=== PATIENT | female | born 1985 | race Caucasian/White ===

== ENCOUNTER 2021-07-31 19:03 | Emergency (ER) | payer BC, MEDICAID, SELFPAY ==
[2021-07-31 19:32] VITALS: BP 177/121; PULSE 66; RESP 18; TEMP 36.8; O2SAT 100; BMI 22.1
--- NOTE | 2021-07-31 21:34 | CTR_ITS ---
PROCEDURE INFORMATION: Exam: CT Head Without Contrast Exam date and time: 07/31/2021 9:51 PM Age: 35 years old Clinical indication: Pain; Headache not specified; Patient HX: C/O CORONEL and HTN TECHNIQUE: Imaging protocol: Computed tomography of the head without contrast. Radiation optimization: All CT scans at this facility use at least one of these dose optimization techniques: automated exposure control; mA and/or kV adjustment per patient size (includes targeted exams where dose is matched to clinical indication); or iterative reconstruction. COMPARISON: No relevant prior studies available. RADIATION DOSE METRICS: Total DLP (mGy-cm): 870.54 FINDINGS: Brain: No acute intracranial hemorrhage or mass effect. No definite acute infarct by CT. Cerebral ventricles: Ventricle size is normal for age. Paranasal sinuses: Included paranasal sinuses are essentially clear. Mastoid air cells: No significant acute finding. Bones/joints: No definite acute skull fracture. Soft tissues: No significant acute finding. CT/CT head wo con* [id number] IMPRESSION: 1. No acute intracranial hemorrhage or mass effect. 2. Other findings discussed above.
--- NOTE | 2021-07-31 22:15 | W.ED.HA ---
HPI - Headache General: Chief Complaint: Headache Stated Complaint: High BP Time Seen by Provider: 07/31/21 22:06 Source: patient Mode of arrival: ambulatory Limitations: no limitations History of Present Illness: 35-year-old female who is currently at [facility] [place] for alcohol and marijuana rehab states her last drink was over a month ago was not having withdrawal symptoms. States she does have a history hypertension supposed to be on atenolol lisinopril has only been taken propanolol there. States that her blood pressure has been high today and the doctor is out for the weekend and she needed prescriptions refilled of her old blood pressure medicine. She states she had a headache earlier today but her headache is since resolved. Denies any worsening improving factors. Associated symptoms: Deny chest pain, fever(s), nausea, rash or vomiting Review of Systems Const: Denies: fever(s), chills, body aches or change in appetite Eyes: Denies: blurry vision or eye discomfort ENMT: Denies: throat pain or dental pain Card: Denies: chest pain Resp: Denies: dyspnea GI: Denies: abdominal pain, nausea, vomiting or diarrhea : Denies: dysuria Musc: Denies: neck pain or back pain Skin/Breast: Denies: rash Neuro: Reports: headache(s) Psych: Denies: depression Beni/Lymph: Denies: easy bruising All/Imm: Denies: urticaria PFSH ED PFSH: Medical History (Updated 07/31/21 @ 22:18 by Lucy Stapleton MD) Hypertension Social History (Updated 07/31/21 @ 22:16 by Lucy Stapleton MD) Alcohol intake: former Physical Exam Const: COMMON NORMALS: no acute distress, patient oriented x3 and healthy appearing HENMT: COMMON NORMALS: normocephalic and atraumatic HEAD & SCALP: normocephalic and atraumatic Eye: COMMON NORMALS: Equal, round and reactive pupils present and EOMs intact bilaterally PUPIL: Yes Equal, round and reactive pupils present Neck/C-Spine: COMMON NORMALS: full ROM and supple Chest: COMMONS NORMALS: normal inspection of the chest and normal palpation of entire chest wall Resp: COMMON NORMALS: normal respiratory effort, No retractions, No use of accessory muscles and clear to auscultation bilaterally AUSCULTATION: clear to auscultation bilaterally Cardio: COMMON NORMALS: regular rate, regular rhythm and No murmurs present (Cardio) RATE: regular rate RHYTHM: regular rhythm GI: COMMON NORMALS: Normal to inspection, nondistended, normoactive bowel sounds present, Soft to palpation, non-tender and no masses PALPATION: Yes Soft to palpation Extremity: COMMON NORMALS: normal to inspection and full ROM Neuro: COMMON NORMALS: patient oriented x3, moves all extremities and no focal motor deficits Psych: COMMON NORMALS: mental status grossly normal, Normal thought process present and cooperative THOUGHT PROCESS: Normal thought process present Skin: COMMON NORMALS: no rashes or lesions noted and no wounds GENERAL SKIN EXAM: no rashes or lesions noted Course Vital Signs: Vital signs: Vital Signs Temperature 98.3 F 07/31/21 19:32 Pulse Rate 66 07/31/21 19:32 Respiratory Rate 18 07/31/21 19:32 Blood Pressure 177/121 07/31/21 19:32 Pulse Oximetry 100 07/31/21 19:32 MDM - Headache Medical Decision Making Patient presents here from [facility] rehab for hypertension she supposed be on atenolol and lisinopril at home that started on her propanolol there and their doctor is out socially were not able to give her any other meds. She did have a headache her late since resolved no symptoms of head bleed. She has no withdrawal symptoms here either. We will refill her atenolol and lisinopril will have them stop the propanolol. Her blood pressure here is improved she is stable for discharge at this time. Lab Data Radiology Impressions Head CT 07/31/21 21:34 IMPRESSION: 1. No acute intracranial hemorrhage or mass effect. 2. Other findings discussed above. Discharge Plan Discharge Patient Disposition: Home Clinical Impression: Hypertension Qualifiers: Hypertension type: primary hypertension Qualified Code(s): I10 - Essential (primary) hypertension Headache Qualifiers: Headache type: unspecified Headache chronicity pattern: acute headache Intractability: not intractable Qualified Code(s): R51.9 - Headache, unspecified Prescriptions: New lisinopril 10 mg tablet 10 mg PO DAILY Qty: 30 0RF atenolol 25 mg tablet 25 mg PO BID Qty: 60 0RF No Action doxycycline monohydrate 100 mg capsule 100 mg PO BID 10 Days Qty: 20 0RF prednisone 20 mg tablet 40 mg PO .Daily in A.M. 5 Days Qty: 10 0RF Discharge Orders: Discharge ED (Routine); Ordered 07/31/21 Ordered By: Lucy Stapleton Referrals: SHANNA Wright, ORDER BUILDER LOADER [Primary Care Provider] - Discharge Diet: Advance as tolerated Discharge Activity: Resume usual activity Patient Instructions: Hypertension (ED) Activity Restrictions/Additional Instructions: Stop propanolol and start atenolol and lisinopril as prescribed Coding Level of Care Code ED Corporate Development Officer for Mattg Fwd Exam Comprehensive
[2021-07-31] MEDS: atenolol 50 mg Tablet 25 MG PO (22:24)
[2021-07-31 22:26] VITALS: BP 148/93; PULSE 62; RESP 18; O2SAT 97
[2021-07-31] MEDS: lisinopril 10 mg Tablet PO (22:26)
== END 2021-07-31 22:33 | disposition home or self-care (01) ==
PROVIDERS: Emergency Provider Emergency Medicine; PCP Nurse Practitioner Family
DX: R51.9 Headache, unspecified (principal); I10 Essential (primary) hypertension
CPT/HCPCS: 70450; 99281

== ENCOUNTER 2024-09-19 12:13 | Emergency (ER) | payer BC, MEDICAID, SELFPAY ==
[2024-09-19 12:19] VITALS: BP 151/94; PULSE 85; RESP 16; TEMP 36.8; O2SAT 100; BMI 23.9
[2024-09-19 13:20] VITALS: BP 157/105; PULSE 68; O2SAT 98
--- NOTE | 2024-09-19 13:30 | CT_ITS ---
WS: [id number] CT ABDOMEN PELVIS TECHNIQUE: Contrast-enhanced CT of the abdomen and pelvis with coronal and sagittal reformatted images. CLINICAL INFORMATION: epigastric abdominal pain severe with nausea COMPARISON: None. DLP: 512.[address] scans at [facility] use at least one of these dose optimization techniques: automated exposure control; mA and/or kV adjustment per patient size (includes targeted exams where dose is matched to clinical indication); or iterative reconstruction. FINDINGS: Mild gastric wall thickening and enhancement. Submucosal enhancement along the duodenum. Findings compatible with gastroduodenitis. Small amount of induration and enhancement involving the collapsed transverse colon and LEFT descending colon can be seen with mild infectious or inflammatory colitis recommend correlation with clinical symptoms. Normal GE junction. Lung bases are well aerated. Hepatomegaly. Fatty liver. Normal portal vein and splenic vein. Normal spleen. Adrenal glands are normal. Normal pancreatic parenchymal enhancement. Normal gallbladder. Normal caliber abdominal aorta. Celiac and SMA are patent. Bilateral renal cysts. No hydronephrosis. Normal appendix in the RIGHT lower quadrant. Urine distended bladder. Anteverted uterus. CT/CT abdomen pelvis w con* [id number] IMPRESSION: 1. Findings compatible with gastritis and duodenitis. 2. Fatty liver. 3. Small amount of induration with submucosal enhancement involving the LEFT d escending colon and transverse colon can be seen with mild infectious or inflam matory colitis. 4. Normal appendix. 5. Small fat-containing umbilical hernia
--- NOTE | 2024-09-19 13:33 | ED_ITS ---
HPI - Abdominal Pain 2 General: Chief Complaint: Abdominal Pain Stated Complaint: abdominal pain Time Seen by Provider: 09/19/24 12:28 History of Present Illness: 39-year-old female presents to the ER [facility] complaint of epigastric abdominal pain progressively worse over the last week or so recent seen at [facility] as well as other locations diagnosed with gastritis patient reports she is currently on Pepcid or Protonix with no improvement of her symptoms patient does report history of alcohol use but none recent reports no increased caffeine nicotine or alcohol usage denying a prior history of gastritis or stomach ulcers patient denies any bloody emesis or bloody stools patient reports no other associated symptoms. She does endorse however moderate nausea with the concerns of wanting to eat due to pain and/or associated symptoms. Associated Symptoms: Reports heartburn and nausea; Denies bloating, chills, constipation, diarrhea, fever(s), hematemesis and vomiting Related Data Date of Last Menstrual Period: 08/28/24 Home Medications ?Medication ?Instructions ?Recorded ?Confirmed omeprazole 40 mg capsule,delayed 40 mg PO DAILY 09/19/24 release Previous Rx's ?Medication ?Instructions ?Recorded ondansetron 4 mg disintegrating 4 mg PO Q8H PRN nausea and 09/19/24 tablet vomiting 4 days #20 tabs sucralfate 1 gram tablet (Carafate) 1 g PO Q6H Abdomin al pain, 09/19/24 gastritis #60 tabs Allergies Allergy/AdvReac Type Severity Reaction Status Date / Time No Known Allergies Allergy Verified 09/19/24 12:21 Review of Systems 2 General: Reports: 10 or more systems reviewed and unremarkable except in HPI and below Const: Denies: fever(s), chills, fatigue or malaise Eyes: Denies: change in vision or blurry vision Card: Denies: chest pain or palpitations Resp: Denies: dyspnea or productive cough GI: Reports: abdominal pain, nausea and heartburn; Denies: vomiting, hematemesis, dysphagia, early satiety, diarrhea, constipation or bloating : Denies: flank pain Musc: Denies: extremity pain or extremity swelling Skin/Breast: Denies: rash or pruritus Neuro: Denies: headache(s) Psych: Denies: anxiety or depression Beni/Lymph: Denies: easy bleeding All/Imm: Denies: urticaria, throat swelling or facial swelling PFSH ED 2 PFSH: Medical History Hypertension Social History Alcohol intake: former Female Reproductive History: Date of last menstrual period: 08/28/24 Physical Exam 2 Const: COMMON NORMALS: patient oriented x3 and healthy appearing; apparent distress (Mild distress due to pain appreciated) HENMT: COMMON NORMALS: normocephalic and atraumatic HEAD & SCALP: n ormocephalic and atraumatic Eye: COMMON NORMALS: Equal, round and reactive pupils present and EOMs intact bilaterally PUPIL: Yes Equal, round and reactive pupils present Neck/C-Spine: COMMON NORMALS: full ROM, supple and no JVD Lymph: LYMPHATIC: no lymphadenopathy noted Chest: COMMONS NORMALS: normal inspection of the chest and normal palpation of entire chest wall Resp: COMMON NORMALS: normal respiratory effort, No retractions and clear to auscultation bilaterally EFFORT & INSPECTION: Yes able to speak in complete sentences and Yes symmetric chest movement AUSCULTATION: clear to auscultation bilaterally Cardio: COMMON NORMALS: no JVD, regular rate and regular rhythm RATE: r egular rate RHYTHM: regular rhythm GI: COMMON NORMALS: negative for Normal to inspection, nondistended, normoactive bowel sounds present, negative for Soft to palpation and negative for non-tender (Moderate tenderness appreciated epigastric region otherwise soft nontender ) INSPECTION: Yes normal to inspection PALPATION: No Soft to palpation : COMMON NORMALS: Yes no CVA tenderness BLADDER/KIDNEY EXAM: Yes no CVA tenderness Back/Pelvis: COMMON NORMALS: no CVA tenderness Extremity: COMMON NORMALS: normal to inspection and full ROM Neuro: COMMON NORMALS: patient oriented x3, CN's II-XII intact bilaterally, moves all extremities and no focal motor deficits Psych: COMMON NORMALS: mental status grossly normal, Normal thought process present, cooperative and normal affect THOUGHT PROCESS: Normal thought process present Skin: COMMON NORMALS: no rashes or lesions noted GENERAL SKIN EXAM: no rashes or lesions noted Course 2 Vital Signs: Vital signs: Vital Signs Temperature 98.3 F 09/19/24 12:19 Pulse Rate 70 09/19/24 14:32 Respiratory Rate 16 09/19/24 12:19 Blood Pressure 157/110 09/19/24 15:20 Pulse Oximetry 98 09/19/24 15:20 Oxygen Delivery Me thod Room Air 09/19/24 12:19 MDM - Abdominal Pain Medical Decision Making Due to patient's symptoms and condition IV was established IV fluids provided for hydration GI cocktail as well as Protonix and Zofran will be provided Underlying concerns of possible pancreatitis versus gastric ulcer versus gastritis apparent will continue to follow CAT scan imaging reveals gastritis and duodenitis patient's lab work is unremarkable she was positive for marijuana patiently to further follow-up with primary care for further evaluation for upper endoscopy to further rule out gastric ulcer patient will be started on Carafate as well as additional medications for symptoms advised further follow-up as previously indicis indicated in which to return the interim if any of her symptoms persist or worse Lab Data 09/19/24 12:55 09/19/24 12:55 Labs/Radiology: Radiology Impressions Abdomen/Pelvis CT 09/19/24 13:30 IMPRESSION: 1. Findings compatible with gastritis and duodenitis. 2. Fatty liver. 3. Small amount of induration with submucosal enhancement involving the LEFT descending colon and transverse colon can be seen with mild infectious or inflammatory colitis. 4. Normal appendix. 5. Small fat-containing umbilical hernia Laboratory Results WBC 7.31 10^3/uL (3.29-11.43) 09/19/24 12:55 RBC 4.77 10^6/uL (3.85-5.65) 09/19/24 12:55 Hgb 14.60 g/dL (11.27-16.99) 09/19/24 12:55 Hct 44.1 % (36-47) 09/19/24 12:55 MCV 92.5 fl (85-98) 09/19/24 12:55 MCH 30.6 pg (27-33) 09/19/24 12:55 MCHC 33.1 g/dL (30-55) 09/19/24 12:55 RDW 13.6 % (12.1-15.1) 09/19/24 12:55 Plt Count 234 10^3/cmm (157-399) 09/19/24 12:55 MPV 10.9 fL (7.4-10.4) H 09/19/24 12:55 Neut % (Auto) 64.9 % 09/19/24 12:55 Lymph % (Auto) 29.0 % 09/19/24 12:55 [place] % (Auto) 5.1 % 09/19/24 12:55 Eos % (Auto) 0.4 % 09/19/24 12:55 Baso % (Auto) 0.3 % 09/19/24 12:55 Neut # (Auto) 4.75 10^3/uL (1.8-7.7) 09/19/24 12:55 Lymph # (Auto) 2.1 10^3/uL (0.8-4.8) 09/19/24 12:55 [place] # (Auto) 0.4 10^3/uL (0.2-0.9) 09/19/24 12:55 Eos # (Auto) 0.0 10^3/uL (0.0-0.8) 09/19/24 12:55 Baso # (Auto) 0.0 10^3/uL (0.0-0.1) 09/19/24 12:55 Nucleated RBC % (auto) 0 % 09/19/24 12:55 Nucleated RBCs # 0.0 /100WBC 09/19/24 12:55 Sodium 139 mmol/L (136-145) 09/19/24 12:55 Potassium 4.5 mmol/L (3.5-5.1) 09/19/24 12:55 Chloride 103 mmol/L (98-107) 09/19/24 12:55 Carbon Dioxide 25 mmol/L (22-29) 09/19/24 12:55 Anion Gap 15.5 (5-19) 09/19/24 12:55 BUN 11 mg/dL (6-20) 09/19/24 12:55 Creatinine 0.7 mg/dL (0.5-0.9) 09/19/24 12:55 GFR Calculation 94.2 mL/min (90-130) 09/19/24 12:55 Glucose 100 mg/dL (65-115) 09/19/24 12:55 Calculated Osmolality 287 mOsm/kg (285-295) 09/19/24 12:55 Calcium 9.5 mg/dL (8.5-10.5) 09/19/24 12:55 Total Bilirubin 0.3 mg/dL (0.15-1.2) 09/19/24 12:55 AST 14 U/L (0-32) 09/19/24 12:55 ALT 11 U/L (0-33) 09/19/24 12:55 Alkaline Phosphatase 88 U/L (35-105) 09/19/24 12:55 C-Reactive Protein 3.0 mg/L (0.0-4.9) 09/19/24 12:55 Total Protein 7.6 g/dL (6.6-8.7) 09/19/24 12:55 Albumin 4.6 g/dL (3.5-5.2) 09/19/24 12:55 Globulin 3.0 g/dL (1.3-4.6) 09/19/24 12:55 Lipase 21 U/L (13-60) 09/19/24 12:55 HCG, Qual Negative (Negative) 09/19/24 12:28 Urine Color Yellow (Yellow) 09/19/24 12:28 Urine Appearance Clear (CLEAR) 09/19/24 12:28 Urine pH 6.0 (5-7) 09/19/24 12:28 Ur Specific [place] 1.019 (1.005-1.030) 09/19/24 12:28 Urine Protein Negative (Negative) 09/19/24 12:28 Urine Glucose (UA) Negative (Normal) 09/19/24 12:28 Urine Ketones Negative (Negative) 09/19/24 12:28 Urine Blood Negative (Negative) 09/19/24 12:28 Urine Nitrate Negative (Negative) 09/19/24 12:28 Urine Bilirubin Negative (Negative) 09/19/24 12:28 Urine Urobilinogen 1.0 mg/dL (Negative) 09/19/24 12:28 Ur Leukocyte Esterase Negative (Negative) 09/19/24 12:28 Urine RBC 0-2 /hpf (0-2) 09/19/24 12:28 Urine WBC 0-5 /hpf (0-5) 09/19/24 12:28 Ur Squamous Epith Cells 0-5 /hpf (0-5) 09/19/24 12:28 Amorphous Sediment Not Reportable 09/19/24 12:28 Urine Bacteria None seen /hpf (NONE) 09/19/24 12:28 Hyaline Casts 0.40 /lpf 09/19/24 12:28 Urine Opiates Screen Negative ng/mL (Negative) 09/19/24 12:28 Ur Barbiturates Screen Negative ng/mL (Negative) 09/19/24 12:28 Ur Phencyclidine Scrn Negative ng/mL (Negative) 09/19/24 12:28 Ur Amphetamines Screen Negative ng/mL (Negative) 09/19/24 12:28 U Benzodiazepines Scrn Negative ng/mL (Negative) 09/19/24 12:28 Urine Cocaine Screen Negative ng/mL (Negative) 09/19/24 12:28 U Marijuana (THC) Screen Positive ng/mL (Negative) H 09/19/24 12:28 All radiology interpretation(s) finalized by discharge Discharge Plan Discharge Patient Disposition: Home Clinical Impression: Gastritis and duodenitis, Abdominal pain, epigastric, Nausea, Marijuana use Condition: Stable Prescriptions: New sucralfate [Carafate] 1 gram tablet 1 g PO Q6H Qty: 60 0RF ondansetron 4 mg tablet,disintegrating 4 mg PO Q8H PRN (Reason: nausea and vomiting) 4 Days Qty: 20 0RF No Action omeprazole 40 mg capsule,delayed release(DR/EC) 40 mg PO DAILY Discharge Orders: Discharge ED (Routine); Ordered 09/19/24 Ordered By: Jacek Covington Referrals: SHANNA Wright FNP [Primary Care Provider, [facility]] - 1-3 days Referral Note: For further referral for upper GI evaluation for upper endoscopy for stomach ulcer rule out Discharge Diet: As Directed Discharge Activity: Increase activity as tolerated Patient Instructions: Abdominal Pain (ED), Gastritis (DC), Gastritis (ED), Duodenitis (ED), Diet for Stomach Ulcers and Gastritis (ED) Activity Restrictions/Additional Instructions: It is recommend that you further follow-up with your primary care doctor for referral for upper endoscopy you were found to have gastritis and duodenitis you will be started on additional medications for this it is instructed at this time for you to discontinue any additional marijuana use as it can contribute as well as additional alcohol use can contribute to having additional stomach ulcers and/or issues. Please return in the interim if any of your symptoms persist or worse otherwise further follow-up primary care in 1-3 days. Print Language: Turkmen Coding Level of Care Code ED Fitness/Wellness Director for Rody Nicole
--- NOTE | 2024-09-19 13:34 | ECG_ITS ---
[facility] Test Date: 2024-09-19 Pat Name: Christine Alston Department: Room: Gender: Female Software Design Manager: : 1985 Requested By: Jacek Covington Order Number: [id number] Yoli MD: Kari Matamoros M.D. Measurements Intervals [place] Rate: 72 P: 86 DC: 120 QRS: 77 QRSD: 90 T: 71 QT: 368 QTc: 405 Interpretive Statements SINUS RHYTHM No previous ECG available for comparison Electronically Signed On 09-19-2024 17:41:00 CDT by Kari Matamoros M.D. [email or web address] [id number]
[2024-09-19] MEDS: ondansetron 2 mg/ML SDV 2 mL 4 MG IVP (13:42)
[2024-09-19] MEDS: lidocaine 2% viscous 15 ML, aluminum-mag hydrox-simethicon 30 ML, sucralfate oral liq 1 GM PO (13:42)
[2024-09-19] MEDS: sodium chloride 0.9% 500 ML IV (13:42)
[2024-09-19] MEDS: pantoprazole 40 mg SDV 80 MG IVP (13:42)
[2024-09-19 13:57] LABS: Basophils % 0.3 %; Eosinophils % 0.4 %; Hematocrit 44.1 % (36-47); Lymphocytes # 2.1 10^3/uL (0.8-4.8); Mean Corpuscular HGB Conc 33.1 g/dL (30-55); Mean Corpuscular Hemoglobin 30.6 pg (27-33); Mean Corpuscular Volume 92.5 fl (85-98); Mean Platelet Volume 10.9 fL (7.4-10.4); Monocytes # 0.4 10^3/uL (0.2-0.9); Monocytes % 5.1 %; Neutrophils # 4.75 10^3/uL (1.8-7.7); Neutrophils % 64.9 %; Nucleated Red Blood Cells % 0 %; Platelet Count 234 10^3/cmm (157-399); Red Blood Count 4.77 10^6/uL (3.85-5.65); Red Cell Distribution Width 13.6 % (12.1-15.1); White Blood Count 7.31 10^3/uL (3.29-11.43)
[2024-09-19 14:02] LABS: Bilirubin Urine Negative (Negative); Blood Urine Negative (Negative); Glucose Urine UA Negative (Normal); Ketones Urine Negative (Negative); Leukocyte Esterase Urine Negative (Negative); Nitrate Urine Negative (Negative); Protein Urine Negative (Negative); Specific Gravity, Urine 1.019 (1.005-1.030); Urine Appearance Clear (CLEAR); Urine Color Yellow (Yellow)
[2024-09-19 14:07] LABS: Add Urine Microscopic? YES; Bacteria Urine None Seen /hpf; RBC Urine 0-2 /hpf (0-2); Squamous Epithelial Cell Urine 0-5 /hpf (0-5); WBC Urine 0-5 /hpf (0-5)
[2024-09-19 14:08] LABS: HCG Qualitative Urine. Negative (Negative)
[2024-09-19 14:09] LABS: Amphetamines Screen Urine Negative (Negative); Barbiturates Screen Urine Negative (Negative); Benzodiazepines Screen Urine Negative (Negative); Cocaine Screen Urine Negative (Negative); Opiate Screen Urine Negative (Negative); PCP Screen Urine Negative (Negative); THC Screen Urine Positive (Negative)
[2024-09-19 14:21] LABS: Alanine Aminotransferase 11 U/L (0-33); Albumin Level 4.6 g/dL (3.5-5.2); Alkaline Phosphatase 88 U/L (35-105); Anion Gap 15.5 (5-19); Aspartate Amino Transferase 14 U/L (0-32); Blood Urea Nitrogen 11 mg/dL (6-20); Calcium 9.5 mg/dL (8.5-10.5); Carbon Dioxide 25 mmol/L (22-29); Chloride 103 mmol/L (98-107); Creatinine Clr Calc Pharmacy 120.0561; Glomerular Filtration Rate 94.2 mL/min (90-130); Glucose 100 mg/dL (65-115); Lipase 21 U/L (13-60); Osmolality Calculated 287 mOsm/kg (285-295); Potassium 4.5 mmol/L (3.5-5.1); Sodium 139 mmol/L (136-145); Total Bilirubin 0.3 mg/dL (0.15-1.2); Total Protein 7.6 g/dL (6.6-8.7)
[2024-09-19] MEDS: iohexol 350 mg/mL 500 mL Btl (per mL) IV (14:25)
[2024-09-19 14:32] VITALS: BP 181/109; PULSE 70; O2SAT 99
[2024-09-19 15:20] VITALS: BP 157/110; O2SAT 98
[2024-09-19 15:55] VITALS: BP 156/114; PULSE 61; O2SAT 100
== END 2024-09-19 16:02 | disposition home or self-care (01) ==
PROVIDERS: Emergency Provider Emergency Medicine; PCP Nurse Practitioner Family
DX: K29.70 Gastritis, unspecified, without bleeding (principal); K29.80 Duodenitis without bleeding; R10.13 Epigastric pain; R11.0 Nausea; F12.90 Cannabis use, unspecified, uncomplicated; I10 Essential (primary) hypertension
CPT/HCPCS: 36415; 74177; 80053; 80306; 81001; 81025; 83690; 85025; 86140; 93005; 96374; 96375; 99285; J2405; J2470; J7040; J9999